=== PATIENT | male | born 1975 | race American Indian/Alaskan Native ===

== ENCOUNTER 2018-02-28 18:22 | Emergency (ER) | payer SELFPAY ==
[2018-02-28 18:31] VITALS: BP 151/93
--- NOTE | 2018-02-28 23:39 | Emergency Department Report ---
ED Lower Extremity HPI - General Chief Complaint: Extremity Injury, Lower Stated Complaint: RIGHT KNEE SWOLLEN Time Seen by Provider: 02/28/18 23:34 Source: patient Mode of arrival: Ambulatory Limitations: No Limitations - History of Present Illness Initial Comments: Patient is a 42-year-old -[place] male with a history of gout presents her right knee pain and swelling 2 days patient denies falling or trauma no fever chills. Pain exacerbated by weightbearing climbing up and down stairs patient has not attempted [id number] pain meds Complaint: other (right knee pain and swelling ) Onset/Timin -: days(s) Injury: Knee: Right Type of Injury: other (none) Place: home Severity: moderate Severity scale (0 -10): 4 Improves With: rest Worsens With: weight bearing, movement, palpation Context: fall Associated Symptoms: swelling, ambulatory - Related Data Previous Rx's Medication Instructions Recorded Last Taken Type Indomethacin 50 mg PO Q8H #30 capsule 02/28/18 Unknown Rx predniSONE [Deltasone] 40 mg PO QDAY 5 Days #10 tab 02/28/18 Unknown Rx Allergies Allergy/AdvReac Type Severity Reaction Status Date / Time Penicillins Allergy Unknown Verified 02/28/18 18:31 ED Review of Systems ROS: Stated complaint: RIGHT KNEE SWOLLEN Other details as noted in HPI Constitutional: denies: chills, fever Eyes: denies: eye pain, eye discharge, vision change ENT: ear pain. denies: dental pain, hearing loss, epistaxis, congestion Respiratory: denies: cough, shortness of breath, wheezing Cardiovascular: denies: chest pain, palpitations, edema, syncope, paroxysmal nocturnal dyspnea Endocrine: no symptoms reported Gastrointestinal: denies: abdominal pain, nausea, diarrhea Genitourinary: denies: urgency, dysuria Musculoskeletal: denies: back pain, joint swelling, arthralgia Skin: denies: rash, lesions Neurological: denies: headache, weakness, paresthesias Psychiatric: as per HPI Hematological/Lymphatic: denies: easy bleeding, easy bruising ED Past Medical Hx - Past Medical History Previous Medical History?: No - Surgical History Past Surgical History?: No - Social History Smoking Status: Former Smoker Substance Use Type: Alcohol - Medications Home Medications: Home Medications Medication Instructions Recorded Confirmed Last Taken Type Indomethacin 50 mg PO Q8H #30 capsule 07/31/18 Unknown Rx predniSONE [Deltasone] 40 mg PO QDAY 5 Days #10 tab 02/28/18 Unknown Rx ED Physical Exam - General Limitations: No Limitations General appearance: alert, in no apparent distress - Head Head exam: Present: atraumatic, normocephalic - Eye Eye exam: Present: normal appearance, PERRL, EOMI Pupils: Present: normal accommodation - ENT ENT exam: Present: normal exam, mucous membranes moist - Neck Neck exam: Present: normal inspection, full ROM. Absent: tenderness, meningismus, lymphadenopathy, thyromegaly - Respiratory Respiratory exam: Present: normal lung sounds bilaterally (5.). Absent: respiratory distress, wheezes, stridor, chest wall tenderness - Cardiovascular Cardiovascular Exam: Present: regular rate, normal rhythm, normal heart sounds. Absent: systolic murmur, diastolic murmur, rubs, gallop - GI/Abdominal GI/Abdominal exam: Present: soft, normal bowel sounds. Absent: distended, tenderness, guarding, rebound, rigid, organomegaly, mass, bruit, pulsatile mass , hernia - Rectal Rectal exam: Present: deferred - exam: Present: normal inspection - Extremities Exam Extremities exam: Present: normal inspection, full ROM, normal capillary refill. Absent: tenderness, pedal edema, joint swelling, calf tenderness - Back Exam Back exam: Present: full ROM. Absent: tenderness, CVA tenderness (R), CVA tenderness (L), muscle spasm, paraspinal tenderness, vertebral tenderness - Neurological Exam Neurological exam: Present: alert, oriented X3 - Psychiatric Psychiatric exam: Present: normal affect, normal mood - Skin Skin exam: Present: warm, dry, intact, normal color. Absent: rash ED Course Vital Signs 02/28/18 18:27 Temperature 97.8 F Pulse Rate 78 Respiratory 20 Rate Blood Pressure 151/93 O2 Sat by Pulse 95 Oximetry Critical care attestation.: If time is entered above; I have spent that time in minutes in the direct care of this critically ill patient, excluding procedure time. ED Disposition Clinical Impression: Gout of knee Qualifiers: Gout etiology: idiopathic Chronicity: unspecified Laterality: left Qualified Code(s): M10.062 - Idiopathic gout, left knee Disposition: TO HOME OR SELFCARE Is pt being admited?: No Does the pt Need Aspirin: No Condition: Good Instructions: Acute Gouty Arthritis (ED) Prescriptions: Indomethacin 50 mg PO Q8H #30 capsule predniSONE [Deltasone] 40 mg PO QDAY 5 Days #10 tab Referrals: PRIMARY CARE, [Primary Care Provider] - 3-5 Days Forms: Work/School Release Form(ED) Time of Disposition: 23:49
[2018-02-28] MEDS ORDERED: ULTRAM PO ONE (23:45)
[2018-02-28] MEDS ORDERED: DELTASONE PO ONE (23:45)
== END 2018-03-01 00:10 | disposition home or self-care (01) ==
LOC: ED 18:22
DX: M10.061 Idiopathic gout, right knee (principal); Z87.891 Personal history of nicotine dependence; Z88.0 Allergy status to penicillin
CPT/HCPCS: 99282; J7512

== ENCOUNTER 2019-04-15 15:57 | Emergency (ER) | payer SELFPAY ==
--- NOTE | 2019-04-15 16:49 | Event Note ---
ED Screening Note Date of service: 04/15/19 Time: 16:46 ED Screening Note: This is a 43 y.o. M. that presents to the ER with drainage and swelling around left great toe nail. Patient stumped toe on the side of bed frame 2 days ago. Reports worsening pain with weight bearing. This initial assessment/diagnostic orders/clinical plan/treatment(s) is/are subject to change based on patients health status, clinical progression and re- assessment by fellow clinical providers in the ED. Further treatment and workup at subsequent clinical providers discretion. Patient/guardian urged not to elope from the ED as their condition may be serious if not clinically assessed and managed. Initial orders include: XR left toes
--- NOTE | 2019-04-15 17:36 | XRay Report ---
Left little toe series-4 views INDICATION: 5st digit distal pain, injury. Significant stubbed the little toe today COMPARISON: None. IMPRESSION: Mild soft tissue swelling with no acute fracture. No significant DJD. Signer Name: Steffen Brower MD Signed: 04/15/2019 5:32 PM Workstation Name: [id number]
[2019-04-15] MEDS ORDERED: BOOSTRIX IM ONE (19:31)
[2019-04-15] MEDS ORDERED: TORADOL IM ONE (19:31)
--- NOTE | 2019-04-15 19:31 | Emergency Department Report ---
ED Laceration HPI - HPI Chief Complaint: Extremity Injury, Lower Stated Complaint: L TOE INJURY Time Seen by Provider: 04/15/19 16:45 Occurred When: Yesterday Location: Lower Extremity (left small toe) Severity: moderate (X/10) Tetanus Status: Not up to Date Laceration Symptoms: Yes Pain (X/10), No Foreign Body Sensation, No Numbness, No Weakness Other History: She presented to the emergency room reported that he bumped his left small toe yesterday accidentally on within object and he is having swelling and pain to left some Fabian. Reports he has a small cut to the area. And that this pain is throbbing. He said he saw some base liquid coming out of the area. Denies any fall. Denies any other pain. Tetanus vaccine is up-to-date. ED Review of Systems ROS: Stated complaint: L TOE INJURY Other details as noted in HPI Constitutional: denies: chills, fever Respiratory: denies: cough, shortness of breath Cardiovascular: denies: chest pain, dyspnea on exertion Gastrointestinal: denies: nausea Musculoskeletal: joint swelling, arthralgia. denies: back pain, myalgia Skin: other (cut to left small toe) Neurological: denies: headache, numbness, paresthesias, abnormal gait ED Past Medical Hx - Past Medical History Previous Medical History?: No - Surgical History Past Surgical History?: No - Family History Family history: no significant - Social History Smoking Status: Current Every Day Smoker Substance Use Type: Alcohol, Marijuana - Medications Home Medications: Home Medications Medication Instructions Recorded Confirmed Last Taken Type Indomethacin 50 mg PO Q8H #30 capsule 02/28/18 Unknown Rx predniSONE [Deltasone] 40 mg PO QDAY 5 Days #10 tab 02/28/18 Unknown Rx Ibuprofen [Motrin] 800 mg PO Q8HR PRN #12 tablet 04/15/19 Unknown Rx Sulfamethoxazole/Trimethoprim 1 each PO Q12HR 7 Days #14 tablet 04/15/19 Unknown Rx [Bactrim DS TAB] Laceration Physical Exam - Exam General: Vital signs noted. No distress. Alert and acting appropriately. This is a 43-year-old male well-nourished well-developed in no acute distress Wound Length (cm): 0 (facial abrasion) Laceration Location: Lower Extremity (left small toe) Full Body Front + Back: 1 - Superficial abrasion left small toe. No bleeding noted. No pus noted. Area tender to palpate distally with swelling and no bony abnormality. Laceration Exam: Yes Normal Distal CMS (extremities physical exam), No Foreign Body, No Exposed Tendon, Vessel, or Nerve, No Tendon Injury ED Course Vital Signs 04/15/19 16:31 Temperature 98.7 F Pulse Rate 98 H Respiratory 18 Rate Blood Pressure 120/85 O2 Sat by Pulse 96 Oximetry - Reevaluation(s) Reevaluation #1: 04/15/19 20:25 Left small toe abrasion cleansed with saline and Neosporin ointment placed the site. Area dressed with dry sterile dressing and postop shoe placed. Patient is stable in no acute distress and was given Bactrim DS for infection, booster 0.5 mL to update tetanus and Toradol 60 mg IM for pain. - Orthopedic Splinting/Casting Injury #1 Side: left Lower Extremity Injury Location: toe Lower Extremity Immobilizer: post-op shoe Additional Comments: Patient with good color, sensation and movement and temperature to both feet including toes ED Medical Decision Making - Radiology Data Radiology results: report reviewed Patient had x-ray of left fifth digits which shows soft tissue swelling without any fracture. This was dictated by radiologist and report reviewed by myself. Please see details below Findings [facility] [address] [place] [address] XRay Report Signed Patient: CONNIE VASQUEZ MR#: [id number] : 1975 Acct:[id number] Age/Sex: 43 / M ADM Date: 04/15/19 Loc: ED Attending Dr: Ordering Physician: BRISA INMAN Date of Service: 04/15/19 Procedure(s): XR toe(s) 2+V LT Accession Number(s): [id number] cc: BRISA INMAN Fluoro Time In Minutes: Left little toe series-4 views INDICATION: 5st digit distal pain, injury. Significant stubbed the little toe today COMPARISON: None. IMPRESSION: Mild soft tissue swelling with no acute fracture. No significant DJD. Signer Name: Steffen Brower MD Signed: 04/15/2019 5:32 PM Workstation Name: [id number] Transcribed By: LUIS Dictated By: Steffen Brower MD Electronically Authenticated By: Steffen Brower MD Signed Date/Time: 04/15/191731 DD/ 30 TD/TT: - Medical Decision Making This is a 43-year-old male here for left small toe injury and found to have contusion to left small toe. He has a small abrasion to the area and site was cleansed, Neosporin ointment placed followed by dry sterile dressing and postop shoe placed. Please refer to procedure note for details. Patient started on antibiotic and emergency room and also even Boostrix to update tetanus. Pain control with Toradol and he is stable in no acute distress in voice pain relief. X-ray showed no fracture or dislocation but mild soft tissue swelling. I discussed the patient x-ray results, diagnosis and treatment plan and he voiced understanding and told him to follow up with his primary care in 2-3 days and if area becomes worse to return to the emergency room and he agrees. Discharge home with prescription for Bactrim and Motrin. - Differential Diagnosis fracture, dislocation, and 2 vision, MSK pain Critical care attestation.: If time is entered above; I have spent that time in minutes in the direct care of this critically ill patient, excluding procedure time. ED Disposition Clinical Impression: Abrasion, toe without infection Contusion of small toe Qualifiers: Encounter type: initial encounter Laterality: left Qualified Code(s): S90.122A - Contusion of left lesser toe(s) without damage to nail, initial encounter Disposition: DC-01 TO HOME OR SELFCARE Is pt being admited?: No Does the pt Need Aspirin: No Condition: Stable Instructions: Foot Contusion (ED), RICE Therapy (ED), Abrasion (ED) Additional Instructions: Follow-up with primary care physician in 2-3 days or if your condition worsens return to the emergency room Please see discharge instruction on Rice therapy Take all medication as prescribed and take medication with food as it can cause irritation to stomach lining Prescriptions: Sulfamethoxazole/Trimethoprim [Bactrim DS TAB] 1 each PO Q12HR 7 Days #14 tablet Ibuprofen [Motrin] 800 mg PO Q8HR PRN #12 tablet PRN Reason: moderate pain Referrals: [facility] [Outside] - 2-3 Days Forms: Accompanied Note, Work/School Release Form(ED)
[2019-04-15] MEDS ORDERED: TRIPLE ANTIBIOTIC TP ONE (19:32)
[2019-04-15] MEDS ORDERED: NACL 0.9% IR ONE (19:32)
[2019-04-15] MEDS ORDERED: BACTRIM DS PO SCH (20:00)
[2019-04-15 20:50] VITALS: BP 148/92
== END 2019-04-15 20:50 | disposition home or self-care (01) ==
LOC: ED 15:57
DX: S90.122A Contusion of left lesser toe(s) without damage to nail, initial encounter (principal); F17.200 Nicotine dependence, unspecified, uncomplicated; F12.90 Cannabis use, unspecified, uncomplicated; Z88.0 Allergy status to penicillin; W22.8XXA Striking against or struck by other objects, initial encounter; Y93.89 Activity, other specified; Y92.89 Other specified places as the place of occurrence of the external cause; Y99.8 Other external cause status
CPT/HCPCS: 73660; 90471; 90715; 96372; 99283; J1885; A6250

== ENCOUNTER 2019-06-02 10:42 | Emergency (ER) | payer SELFPAY ==
[2019-06-02 11:12] VITALS: BP 129/87
--- NOTE | 2019-06-02 12:42 | Emergency Department Report ---
ED Lower Extremity HPI - General Chief Complaint: Extremity Problem,Nontraumatic Stated Complaint: SWOLLEN KNEE Time Seen by Provider: 06/02/19 12:00 Source: patient Mode of arrival: Ambulatory Limitations: No Limitations - History of Present Illness Initial Comments: Initial complaint of R knee pain which he thinks may be a gout flare up, however also having pain and tenderness popliteal area. No hx DVT Also states a partner notified him that she has trich and he wants STI screening. No symptoms MD Complaint: knee injury -: Gradual, days(s) (1) Injury: Knee: Right Type of Injury: unknown Place: home Severity: moderate Severity scale (0 -10): 7 Improves With: immobilization Worsens With: weight bearing, movement Associated Symptoms: swelling, ambulatory - Related Data Previous Rx's Medication Instructions Recorded Last Taken Type predniSONE [Deltasone] 40 mg PO QDAY 5 Days #10 tab 02/28/18 Unknown Rx Ibuprofen [Motrin] 800 mg PO Q8HR PRN #12 tablet 04/15/19 Unknown Rx Sulfamethoxazole/Trimethoprim 1 each PO Q12HR 7 Days #14 tablet 04/15/19 Unknown Rx [Bactrim DS TAB] Indomethacin 50 mg PO Q8H #21 capsule 06/02/19 Unknown Rx dexAMETHasone [Dexamethasone] 4 mg PO BID #10 tablet 06/02/19 Unknown Rx metroNIDAZOLE [Flagyl TAB] 2,000 mg PO ONCE #4 tab 06/02/19 Unknown Rx Allergies Allergy/AdvReac Type Severity Reaction Status Date / Time Penicillins Allergy Unknown Verified 02/28/18 18:31 ED Review of Systems ROS: Stated complaint: SWOLLEN KNEE Other details as noted in HPI Comment: All other systems reviewed and negative Musculoskeletal: as per HPI ED Past Medical Hx - Past Medical History Previous Medical History?: No - Surgical History Past Surgical History?: No - Social History Smoking Status: Never Smoker Substance Use Type: None - Medications Home Medications: Home Medications Medication Instructions Recorded Confirmed Last Taken Type predniSONE [Deltasone] 40 mg PO QDAY 5 Days #10 tab 02/28/18 Unknown Rx Ibuprofen [Motrin] 800 mg PO Q8HR PRN #12 tablet 04/15/19 Unknown Rx Sulfamethoxazole/Trimethoprim 1 each PO Q12HR 7 Days #14 tablet 04/15/19 U nknown Rx [Bactrim DS TAB] Indomethacin 50 mg PO Q8H #21 capsule 06/02/19 Unknown Rx dexAMETHasone [Dexamethasone] 4 mg PO BID #10 tablet 06/02/19 Unknown Rx metroNIDAZOLE [Flagyl TAB] 2,000 mg PO ONCE #4 tab 06/02/19 Unknown Rx ED Physical Exam - General Limitations: No Limitations General appearance: alert, in no apparent distress - Head Head exam: Present: atraumatic, normocephalic - Eye Eye exam: Present: normal appearance - ENT ENT exam: Present: mucous membranes moist - Neck Neck exam: Present: normal inspection - Respiratory Respiratory exam: Present: normal lung sounds bilaterally. Absent: respiratory distress - Cardiovascular Cardiovascular Exam: Present: regular rate, normal rhythm. Absent: systolic murmur, diastolic murmur, rubs, gallop - GI/Abdominal GI/Abdominal exam: Present: soft, normal bowel sounds - Rectal Rectal exam: Present: deferred - Extremities Exam Extremities exam: Present: other (mild swelling to R knee as well as the upper part of the calf w/ popliteal tenderness, normal distal pulses, normal sensation) - Back Exam Back exam: Present: normal inspection, full ROM - Neurological Exam Neurological exam: Present: alert, oriented X3 - Psychiatric Psychiatric exam: Present: normal affect, normal mood - Skin Skin exam: Present: warm, dry, intact, normal color. Absent: rash ED Course Vital Signs 06/02/19 11:10 Temperature 98.4 F Pulse Rate 97 H Respiratory 16 Rate Blood Pressure 129/87 [Left] O2 Sat by Pulse 95 Oximetry ED Lower Extremity MDM - Radiology Data Radiology results: report reviewed, image reviewed no dvt - Medical Decision Making knee/LE pain, ? gout, hx of but never with leg swelling DVT study negative no sign of septic joint also wants trich treatment advised pcp fu - Differential Diagnosis gout, pseudogout, r/o DVT, STI exposure Critical care attestation.: If time is entered above; I have spent that time in minutes in the direct care of this critically ill patient, excluding procedure time. ED Disposition Clinical Impression: Exposure to trichomonas Gout of right knee Qualifiers: Gout etiology: unspecified cause Chronicity: acute Qualified Code(s): M10.9 - Gout, unspecified Disposition: DC- TO HOME OR SELFCARE Is pt being admited?: No Condition: Good Instructions: Acute Gouty Arthritis (ED), Trichomoniasis (ED) Prescriptions: dexAMETHasone [Dexamethasone] 4 mg PO BID #10 tablet metroNIDAZOLE [Flagyl TAB] 2,000 mg PO ONCE #4 tab Indomethacin 50 mg PO Q8H #21 capsule Referrals: PRIMARY CARE, [Primary Care Provider] - 3-5 Days Time of Disposition: 13:51
--- NOTE | 2019-06-02 13:36 | Vascular Lab Report ---
DUPLEX DOPPLER LOWER EXTREMITY VEINS, RIGHT INDICATION: pain, edema. TECHNIQUE: Duplex doppler imaging was performed through the veins of the right lower extremity using venous comp ression and other maneuvers. COMPARISON: No relevant prior imaging study available. FINDINGS: Right Common femoral vein: Negative. Right Superficial femoral vein: Negative. Right Popliteal vein: Negative. Right Calf veins: Negative. Additional findings: None.. IMPRESSION: 1. No sonographic evidence for DVT in the right lower extremity. Signer Name: Steffen Brower MD Signed: 06/02/2019 1:31 PM Workstation Name: [id number]
== END 2019-06-02 13:58 | disposition home or self-care (01) ==
LOC: ED 10:42
DX: M10.9 Gout, unspecified (principal); Z20.2 Contact with and (suspected) exposure to infections with a predominantly sexual mode of transmission; Z88.0 Allergy status to penicillin
CPT/HCPCS: 87591

== ENCOUNTER 2019-08-07 11:38 | Emergency (ER) | payer SELFPAY ==
--- NOTE | 2019-08-07 12:07 | Emergency Department Report ---
Blank Doc - Documentation Documentation: 43 Y/O S/P BINGE DRINKING AN UNKNOWN INTOXICATING SUBSTANCE A FEW DAYS AGO AND NOW HAS A HEADACHE AND HAD ONE URINATION IN THE LAST 3 DAYS 3WHICH WAS DARK RED. PAIN RADIATES TO FLANK TOO The patient was seen in triage for ABDOMINAL AND FLANK PAIN. Labs/imaging ordered to evaluate for a cause of this complaint. Vital signs reviewed, patient awake and alert in NAD.
[2019-08-07 13:14] LABS: Bacteria,Urine 1+ /HPF (Negative); Bilirubin,Urine NEG (Negative); Blood,Urine SM (Negative); Color,Urine Amber (Yellow); Granular Casts,Urine 3 /LPF; Hyaline Casts,Urine 3 /LPF; Mucus,Urine 3+ /HPF
[2019-08-07 13:19] LABS: Eosinophils % (Auto) 0.9 % (0.0-4.3); Hematocrit 41.6 % (35.5-45.6); Hemoglobin 14.5 gm/dl (11.8-15.2); Lymphocytes # (Auto) 0.8 K/mm3 (1.2-5.4); Lymphocytes % (Auto) 23.5 % (13.4-35.0); Mean Corpuscular HGB Conc 35 % (32-34); Mean Corpuscular Volume 94 fl (84-94); Monocytes # (Auto) 0.2 K/mm3 (0.0-0.8); Monocytes % (Auto) 7.4 % (0.0-7.3); Platelet Count 203 K/mm3 (140-440); Red Blood Count 4.43 M/mm3 (3.65-5.03); Red Cell Distribution Width 13.1 % (13.2-15.2)
[2019-08-07 13:52] LABS: Alanine Aminotransferase 157 units/L (7-56); Albumin 4.4 g/dL (3.9-5); BUN/Creatinine Ratio 10; Bilirubin,Direct 0.4 mg/dL (0-0.2); Blood Urea Nitrogen 11 mg/dL (9-20); Hemolysis Index 7
[2019-08-07] MEDS ORDERED: MORPHINE 2 MG/1 ML INJ IV ONE (17:38)
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
--- NOTE | 2019-08-07 18:47 | Cat Scan Report ---
CT ABDOMEN AND PELVIS WITH IV CONTRAST INDICATION: abdominal pain. COMPARISON: None available. TECHNIQUE: All CT scans at this facility use dose modulation, automated exposure control, iterative reconstructi on or weight based dosing, when appropriate, to reduce radiation dose to as low as reasonably achieva ble. FINDINGS: Lung Bases: No significant abnormality. Skeletal System: No acute abnormality. ABDOMEN: Liver: No significant abnormality. Gallbladder: No significant abnormality. Bile Ducts: No significant abnormality. Pancreas: No significant abnormality. Spleen: No significant abnormality. Adrenals: No significant abnormality. Right Kidney: No significant abnormality. Left Kidney: No significant abnormality. Upper GI tract: No significant abnormality. Lymph Nodes: No significant adenopathy. Aorta: No significant abnormality. Additional Findings: No significant abnormality. PELVIS: Colon: No acute abnormality. Diverticulosis is noted. Urinary Bladder and Distal Ureters: No significant abnormality. Appendix: No significant abnormality. Lymph Nodes: No significant adenopathy. Additional Findings: None. IMPRESSION: 1. No acute process in the abdomen or pelvis. Signer Name: Livan Mckeon MD Signed: 08/07/2019 6:42 PM Workstation Name: [id number]
[2019-08-07] MEDS ORDERED: POTASSIUM CHLORIDE ER 20 MEQ TAB PO ONE (19:03)
[2019-08-07] MEDS ORDERED: SODIUM CHLORIDE 0.9% 1000 ML 1,000 ML IV ONE (19:15)
[2019-08-07 19:27] VITALS: BP 124/90
== END 2019-08-07 19:39 | disposition home or self-care (01) ==
LOC: ED 11:38
DX: M54.5 Low back pain (principal); R10.9 Unspecified abdominal pain; R94.5 Abnormal results of liver function studies; Z79.899 Other long term (current) drug therapy; Z88.0 Allergy status to penicillin
CPT/HCPCS: 36415; 74177; 80048; 80076; 81001; 83690; 85025; 96374; 99284; J2270; Q9967

== ENCOUNTER 2019-09-24 18:53 | Emergency (ER) | payer SELFPAY ==
[2019-09-24 20:09] VITALS: BP 126/87
--- NOTE | 2019-09-24 20:13 | Emergency Department Report ---
ED Extremity Problem HPI - General Chief complaint: Extremity Problem,Nontraumatic Stated complaint: GOUT, SWOLLEN KNEE Time Seen by Provider: 09/24/19 20:09 Source: patient Mode of arrival: Ambulatory Limitations: No Limitations - History of Present Illness Initial comments: pt is a 44 yo male who presents to the ED with c/o a gout flare to the right k nee that began yesterday. he states he typically gets his flares in this knee. he states his last flare was 3 months ago. he states he tries to follow the diet. no numbness, no weakness. PMHx none. allergy: pencillin. - Related Data Previous Rx's Medication Instructions Recorded Last Taken Type Ibuprofen [Motrin] 800 mg PO Q8HR PRN #12 tablet 04/15/19 Unknown Rx Sulfamethoxazole/Trimethoprim 1 each PO Q12HR 7 Days #14 tablet 04/15/19 Unknown Rx [Bactrim DS TAB] dexAMETHasone [Dexamethasone] 4 mg PO BID #10 tablet 06/02/19 Unknown Rx metroNIDAZOLE [Flagyl TAB] 2,000 mg PO ONCE #4 tab 06/02/19 Unknown Rx Colchicine 0.6 mg PO ONCE 1 Days #3 capsule 09/24/19 Unknown Rx Indomethacin 50 mg PO Q8H #14 capsule 09/24/19 Unknown Rx predniSONE [Deltasone] 40 mg PO QDAY 5 Days #10 tab 09/24/19 Unknown Rx traMADoL [Ultram 50 MG tab] 50 mg PO Q6HR PRN #7 tablet 09/24/19 Unknown Rx Allergies Allergy/AdvReac Type Severity Reaction Status Date / Time Penicillins Allergy Unknown Verified 02/28/18 18:31 ED Review of Systems ROS: Stated complaint: GOUT, SWOLLEN KNEE Other details as noted in HPI Comment: All other systems reviewed and negative ED Past Medical Hx - Past Medical History Previous Medical History?: Yes Additional medical history: Gout - Surgical History Past Surgical History?: No - Social History Smoking Status: Never Smoker Substance Use Type: None - Medications Home Medications: Home Medications Medication Instructions Recorded Confirmed Last Taken Type Ibuprofen [Motrin] 800 mg PO Q8HR PRN #12 tablet 04/15/19 Unknown Rx Sulfamethoxazole/Trimethoprim 1 each PO Q12HR 7 Days #14 tablet 04/15/19 Unknown Rx [Bactrim DS TAB] dexAMETHasone [Dexamethasone] 4 mg PO BID #10 tablet 06/02/19 Unknown Rx metroNIDAZOLE [Flagyl TAB] 2,000 mg PO ONCE #4 tab 06/02/19 Unknown Rx Colchicine 0.6 mg PO ONCE 1 Days #3 capsule 09/24/19 Unknown Rx Indomethacin 50 mg PO Q8H #14 capsule 09/24/19 Unknown Rx predniSONE [Deltasone] 40 mg PO QDAY 5 Days #10 tab 09/24/19 Unknown Rx traMADoL [Ultram 50 MG tab] 50 mg PO Q6HR PRN #7 tablet 09/24/19 Unknown Rx ED Physical Exam - General Limitations: No Limitations General appearance: alert, in no apparent distress - Head Head exam: Present: atraumatic, normocephalic - Eye Eye exam: Present: normal appearance - ENT ENT exam: Present: mucous membranes moist - Extremities Exam Extremities exam: Present: other (edema to the right knee, mild increased warmth, no obvious erythema, generalized discomfort to palpation, no bony TTP, FROM of the right knee, neurovascularly intact) - Neurological Exam Neurological exam: Present: alert, oriented X3 - Psychiatric Psychiatric exam: Present: normal affect, normal mood - Skin Skin exam: Present: warm, dry, intact ED Course Vital Signs 09/24/19 20:08 Temperature 98.6 F Pulse Rate 89 Respiratory 18 Rate Blood Pressure 126/87 O2 Sat by Pulse 95 Oximetry ED Medical Decision Making - Medical Decision Making pt is a 44 yo male who presents to the ED with c/o a gout flare to the right knee that began yesterday. he states he typically gets his flares in this knee. he states his last flare was 3 months ago. he states he tries to follow the diet. no numbness, no weakness. PMHx none. allergy: pencillin. vital are normal. on exam: edema to the right knee, mild increased warmth, no obvious erythema, generalized discomfort to palpation, no bony TTP, FROM of the right knee, neurovascularly intact. Examination consistent with acute gout flare. No signs of septic joint. Given prescription for prednisone, colchicine, tramadol, indomethacin. advised pt to please take medication as prescribed. do not drive or operate heavy machinery while taking pain medication. medication may cause GI upset/diarrhea. follow up with a primary care doctor for reexamination. return to the emergency room for any new or worsening symptoms. Critical care attestation.: If time is entered above; I have spent that time in minutes in the direct care of this critically ill patient, excluding procedure time. ED Disposition Clinical Impression: Gout Qualifiers: Gout site: knee Gout etiology: unspecified cause Chronicity: acute Laterality: right Qualified Code(s): M10.9 - Gout, unspecified Disposition: TO HOME OR SELFCARE Is pt being admited?: No Does the pt Need Aspirin: No Condition: Stable Instructions: Acute Gouty Arthritis (ED) Additional Instructions: please take medication as prescribed. do not drive or operate heavy machinery while taking pain medication. medication may cause GI upset/diarrhea. follow up with a primary care doctor for reexamination. return to the emergency room for any new or worsening symptoms. Prescriptions: Colchicine 0.6 mg PO ONCE 1 Days #3 capsule predniSONE [Deltasone] 40 mg PO QDAY 5 Days #10 tab Indomethacin 50 mg PO Q8H #14 capsule traMADoL [Ultram 50 MG tab] 50 mg PO Q6HR PRN #7 tablet PRN Reason: Pain , Severe (7-10) Referrals: JOHNNY SANCHES MD [Staff Physician] - 2-3 Days [facility] [Outside] - 2-3 Days [facility] [Outside] - 2-3 Days Time of Disposition: 20:14 Print Language: [place] ISLANDER
== END 2019-09-24 21:48 | disposition home or self-care (01) ==
LOC: ED 18:53
DX: M10.9 Gout, unspecified (principal); M25.461 Effusion, right knee; Z88.0 Allergy status to penicillin; Z79.899 Other long term (current) drug therapy
CPT/HCPCS: 99281

== ENCOUNTER 2021-08-21 23:42 | Emergency (ER) | payer SELFPAY | END 2021-08-22 04:20 | disposition left against medical advice (07) | LOC: ED 23:42 | DX: R00.2 Palpitations (principal); Z53.21 Procedure and treatment not carried out due to patient leaving prior to being seen by health care provider ==

== ENCOUNTER 2021-08-22 05:00 | Emergency (ER) | payer SELFPAY ==
[2021-08-22] MEDS ORDERED: ASPIRIN 81 MG TAB CHEW PO ONE (06:36)
--- NOTE | 2021-08-22 06:44 | Emergency Department Report ---
ED Chest Pain HPI - General Chief Complaint: Chest Pain Stated Complaint: CHEST PAIN PUI?: No Time Seen by Provider: 08/22/21 06:33 Source: patient Mode of arrival: Ambulatory Limitations: No Limitations - History of Present Illness Initial Comments: Chief complaint: "I feel like an elephant is sitting on my chest." HPI: This is a 46-year-old male with history of tobacco dependence who presents with sudden onset of chest pain which began at 10 PM this evening. Occurred while watching TV. He has had cough. He has had shortness of breath. He denies fever, headache, abdominal pain, vomiting. No previous history of heart disease. Grandmother has history of heart disease. He stopped using cocaine 10 years ago. No known sick contacts. MD Complaint: chest pain -: Sudden, During the night Onset: during rest Pain Location: substernal Severity: severe Severity scale (0 -10): 10 Quality: heaviness Consistency: constant Improves With: nothing Worsens With: nothing re: dyspnea Other Symptoms: cough Treatments Prior to Arrival: none - Related Data Previous Rx's Medication Instructions Recorded Last Taken Type Ibuprofen [Motrin] 800 mg PO Q8HR PRN #12 tablet 04/15/19 Unknown Rx Sulfamethoxazole/Trimethoprim 1 each PO Q12HR 7 Days #14 tablet 04/15/19 Unknown Rx [Bactrim DS TAB] dexAMETHasone [Dexamethasone] 4 mg PO BID #10 tablet 06/02/19 Unknown Rx metroNIDAZOLE [Flagyl TAB] 2,000 mg PO ONCE #4 tab 06/02/19 Unknown Rx Colchicine 0.6 mg PO ONCE 1 Days #3 capsule 09/24/19 Unknown Rx Indomethacin 50 mg PO Q8H #14 capsule 09/24/19 Unknown Rx predniSONE [Deltasone] 40 mg PO QDAY 5 Days #10 tab 09/24/19 Unknown Rx traMADoL [Ultram 50 MG tab] 50 mg PO Q6HR PRN #7 tablet 09/24/19 Unknown Rx Allergies Allergy/AdvReac Type Severity Reaction Status Date / Time Penicillins Allergy Unknown Verified 02/28/18 18:31 Heart Score - HEART Score History: Moderately suspicious EKG: Normal Age: 45-65 Risk factors: 1-2 risk factors Troponin: < normal limit HEART Score: 3 - EKG Read Time Time EKG Completed: 06:15 EKG Read Time: 06:15 - Critical Actions Critical Actions: 0-3 pts:0.9-1.7%risk of adverse cardiac event.Candidate for discharge ED Review of Systems ROS: Stated complaint: CHEST PAIN Other details as noted in HPI Comment: All other systems reviewed and negative Constitutional: denies: chills, fever, malaise Respiratory: cough, shortness of breath Cardiovascular: chest pain Gastrointestinal: denies: abdominal pain, nausea, vomiting ED Past Medical Hx - Past Medical History Previous Medical History?: No Additional medical history: Gout - Surgical History Past Surgical History?: No - Social History Smoking Status: Current Every Day Smoker Substance Use Type: Alcohol, Marijuana - Medications Home Medications: Home Medications Medication Instructions Recorded Confirmed Last Taken Type Ibuprofen [Motrin] 800 mg PO Q8HR PRN #12 tablet 04/15/19 Unknown Rx Sulfamethoxazole/Trimethoprim 1 each PO Q12HR 7 Days #14 tablet 04/15/19 Unknown Rx [Bactrim DS TAB] dexAMETHasone [Dexamethasone] 4 mg PO BID #10 tablet 06/02/19 Unknown Rx metroNIDAZOLE [Flagyl TAB] 2,000 mg PO ONCE #4 tab 06/02/19 Unknown Rx Colchicine 0.6 mg PO ONCE 1 Days #3 capsule 09/24/19 Unknown Rx Indomethacin 50 mg PO Q8H #14 capsule 09/24/19 Unknown Rx predniSONE [Deltasone] 40 mg PO QDAY 5 Days #10 tab 09/24/19 Unknown Rx traMADoL [Ultram 50 MG tab] 50 mg PO Q6HR PRN #7 tablet 09/24/19 Unknown Rx ED Physical Exam - General Limitations: No Limitations General appearance: alert, in no apparent distress - Head Head exam: Present: atraumatic, normocephalic - Eye Eye exam: Present: normal appearance - ENT ENT exam: Present: mucous membranes moist - Neck Neck exam: Present: normal inspection, full ROM - Respiratory Respiratory exam: Present: normal lung sounds bilaterally. Absent: respiratory distress, wheezes, rales, rhonchi - Cardiovascular Cardiovascular Exam: Present: regular rate, normal rhythm, normal heart sounds. Absent: systolic murmur, diastolic murmur, rubs, gallop - GI/Abdominal GI/Abdominal exam: Present: soft, normal bowel sounds. Absent: distended, tenderness, guarding, rebound - Rectal Rectal exam: Present: deferred - Extremities Exam Extremities exam: Present: normal inspection - Back Exam Back exam: Present: normal inspection - Neurological Exam Neurological exam: Present: alert, oriented X3 - Psychiatric Psychiatric exam: Present: normal affect, normal mood - Skin Skin exam: Present: warm, dry, intact, normal color. Absent: rash ED Course Vital Signs 08/22/21 06:02 Temperature 97.9 F Pulse Rate 75 Respiratory 18 Rate Blood Pressure 120/83 [Right] O2 Sat by Pulse 97 Oximetry ED Medical Decision Making - Lab Data Result diagrams: 08/22/21 07:04 08/22/21 07:04 - EKG Data -: EKG Interpreted by Me EKG shows normal: sinus rhythm, axis, intervals, QRS complexes, ST-T waves Rate: normal - EKG Data 08/22/21 06:44 EKG obtained 0 615 EKG interpreted by me Rate 70 bpm normal sinus rhythm normal axis normal intervals no ST-T signs of ischemia no ST elevation 08/22/21 09:02 Second EKG obtained 0858 EKG interpreted by me Rate 80 beats minute normal EKG no changes from the first normal sinus rhythm normal rate normal axis normal intervals no ST elevation no ST-T signs of isch emia normal EKG - Radiology Data Radiology results: report reviewed [facility] [address] [place] [address] XRay Report Signed Patient: CONNIE VASQUEZ MR#: [id number] : 1975 Acct:[id number] Age/Sex: 46 / M ADM Date: 08/22/21 Loc: ED Attending Dr: Ordering Physician: Mindy Crabtree MD Date of Service: 08/22/21 Procedure(s): XR chest routine 2V Accession Number(s): [id number] cc: Mindy Crabtree MD Fluoro Time In Minutes: CHEST 2 VIEWS INDICATION / CLINICAL INFORMATION: chest pain. COMPARISON: None available. FINDINGS: SUPPORT DEVICES: None. HEART / MEDIASTINUM: No significant abnormality. LUNGS / PLEURA: No significant pulmonary or pleural abnormality. No pneumothorax. ADDITIONAL FINDINGS: No significant additional findings. IMPRESSION: 1. No acute findings. Signer Name: Abhilash Delgadillo MD Signed: 08/22/2021 6:59 AM Workstation Name: [id number] Transcribed By: CW Dictated By: RUBEN DELGADILLO MD Electronically Authenticated By: RUBEN DELGADILLO MD Signed Date/Time: 08/22/21658 DD/ 8 TD/TT: - Medical Decision Making Chest pain heart score 3, ACS is a consideration. PERC negative for PE. Differential diagnosis includes GERD anxiety. Troponin x2 both negative. EKG x2 both negative. Patient is low risk of major adverse cardiac event. I have referred him to assistant corporation counsel for outpatient evaluation. I have faxed referral r equest form to [facility]. Critical care attestation.: If time is entered above; I have spent that time in minutes in the direct care of this critically ill patient, excluding procedure time. ED Disposition Clinical Impression: GERD (gastroesophageal reflux disease), Chest wall pain Disposition: HOME / SELF CARE / HOMELESS Is pt being admited?: No Does the pt Need Aspirin: No Condition: Stable Instructions: Nonspecific Chest Pain, Adult Referrals: GURINDER DUNLAP MD [Staff Physician] - 2-3 Days
--- NOTE | 2021-08-22 07:03 | XRay Report ---
CHEST 2 VIEWS INDICATION / CLINICAL INFORMATION: chest pain. COMPARISON: None available. FINDINGS: SUPPORT DEVICES: None. HEART / MEDIASTINUM: No significant abnormality. LUNGS / PLEURA: No significant pulmonary or pleural abnormality. No pneumothorax. ADDITIONAL FINDINGS: No significant additional findings. IMPRESSION: 1. No acute findings. Signer Name: Abhilash Delgadillo MD Signed: 08/22/2021 6:59 AM Workstation Name: [id number]
[2021-08-22 07:44] LABS: Basophils % (Auto) 0.7 % (0.0-1.8); Eosinophils # (Auto) 0.2 K/mm3 (0.0-0.4); Eosinophils % (Auto) 3.9 % (0.0-4.3); Hematocrit 44.9 % (35.5-45.6); Hemoglobin 14.6 gm/dl (11.8-15.2); Lymphocytes % (Auto) 48.3 % (13.4-35.0); Mean Corpuscular HGB Conc 33 % (32-34); Mean Corpuscular Volume 98 fl (84-94); Monocytes # (Auto) 0.5 K/mm3 (0.0-0.8); Monocytes % (Auto) 10.8 % (0.0-7.3); Platelet Count 281 K/mm3 (140-440); Red Blood Count 4.59 M/mm3 (3.65-5.03); Red Cell Distribution Width 13.3 % (13.2-15.2)
[2021-08-22] MEDS ORDERED: ASPIRIN 325 MG TAB ONE (07:48)
[2021-08-22 08:10] LABS: Alanine Aminotransferase 26 units/L (7-56); Albumin 4.9 g/dL (3.9-5); BUN/Creatinine Ratio 23; Blood Urea Nitrogen 18 mg/dL (9-20); Calcium 9.9 mg/dL (8.4-10.2); Hemolysis Index 17
[2021-08-22] MEDS ORDERED: ASPIRIN 81 MG TAB CHEW ONE (08:39)
[2021-08-22 10:17] VITALS: BP 138/89
--- NOTE | 2021-08-27 13:18 | Electrocardiograph Report ---
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
--- NOTE | 2021-08-27 13:19 | Electrocardiograph Report ---
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
== END 2021-08-22 10:18 | disposition home or self-care (01) ==
LOC: ED 05:00
DX: K21.9 Gastro-esophageal reflux disease without esophagitis (principal); R07.9 Chest pain, unspecified; F17.200 Nicotine dependence, unspecified, uncomplicated; F10.20 Alcohol dependence, uncomplicated; F12.90 Cannabis use, unspecified, uncomplicated
CPT/HCPCS: 36415; 71046; 80053; 84484; 85025; 93005; 93010; 99283; 99284

== ENCOUNTER 2022-02-03 20:16 | Emergency (ER) | payer SELFPAY ==
--- NOTE | 2022-02-04 00:19 | XRay Report ---
Bilateral feet radiographs, 3 views of each foot provided. HISTORY: Trauma COMPARISON: None FINDINGS: Right foot: No acute fracture or malalignment. There is mild hallux valgus. No significant arthritis. Lisfranc interval is preserved. There is evidence of soft tissue injury of the medial great toe. No radiopaque foreign body. Left foot: No acute fracture or malalignment. No significant arthritis. Lisfranc interval is preserve d. No focal soft tissue normality. Signer Name: Rene Mcintyre MD Signed: 02/04/2022 12:14 AM Workstation Name: [id number]
--- NOTE | 2022-02-04 05:25 | Emergency Department Report ---
ED Lower Extremity HPI - General Chief Complaint: Extremity Injury, Lower Stated Complaint: FOOT INJURY Time Seen by Provider: 02/04/22 05:13 Source: patient Mode of arrival: Ambulatory Limitations: No Limitations - History of Present Illness Initial Comments: Patient 46-year-old male who presents for bilateral great toe pain swelling states he dropped a dresser on his toes 1 week ago. Concern for nail pain. There is been no fever no chills patient does not have diabetes paced and denies draining or bleeding. Patient is amatory with steady gait is wearing shoes and socks at this time. Patient denies numbness or tingling or inability to bear weight. Pain rated at 5/10 exacerbated by palpation. MD Complaint: foot injury - Related Data Previous Rx's Medication Instructions Recorded Last Taken Type Ibuprofen [Motrin] 800 mg PO Q8HR PRN #12 tablet 04/15/19 Unknown Rx Sulfamethoxazole/Trimethoprim 1 each PO Q12HR 7 Days #14 tablet 04/15/19 Unknown Rx [Bactrim DS TAB] dexAMETHasone [Dexamethasone] 4 mg PO BID #10 tablet 06/02/19 Unknown Rx metroNIDAZOLE [Flagyl TAB] 2,000 mg PO ONCE #4 tab 06/02/19 Unknown Rx Colchicine 0.6 mg PO ONCE 1 Days #3 capsule 09/24/19 Unknown Rx Indomethacin 50 mg PO Q8H #14 capsule 09/24/19 Unknown Rx predniSONE [Deltasone] 40 mg PO QDAY 5 Days #10 tab 09/24/19 Unknown Rx traMADoL [Ultram 50 MG tab] 50 mg PO Q6HR PRN #7 tablet 09/24/19 Unknown Rx Terbinafine HCl [Lamisil At 1% 1 applicatio TP BID 14 Days #1 tube 02/04/22 Unknown Rx CREAM] cephALEXin [Keflex] 500 mg PO Q8HR 7 Days #21 cap 02/04/22 Unknown Rx traMADoL [Ultram] 50 mg PO Q6HR PRN #12 tablet 02/04/22 Unknown Rx Allergies Allergy/AdvReac Type Severity Reaction Status Date / Time Penicillins Allergy Unknown Verified 02/28/18 18:31 ED Review of Systems ROS: Stated complaint: FOOT INJURY Other details as noted in HPI Constitutional: denies: chills, fever Eyes: denies: eye pain, eye discharge, vision change ENT: denies: ear pain, throat pain Respiratory: denies: cough, shortness of breath, wheezing Cardiovascular: denies: chest pain, palpitations Endocrine: no symptoms reported Gastrointestinal: denies: abdominal pain, nausea, diarrhea Genitourinary: denies: urgency, dysuria Musculoskeletal: other Skin: denies: rash, lesions Neurological: denies: headache, weakness, paresthesias Psychiatric: denies: anxiety, depression Hematological/Lymphatic: denies: easy bleeding, easy bruising ED Past Medical Hx - Past Medical History Additional medical history: Gout - Social History Smoking Status: Current Every Day Smoker Substance Use Type: Alcohol, Marijuana - Medications Home Medications: Home Medications Medication Instructions Recorded Confirmed Last Taken Type Ibuprofen [Motrin] 800 mg PO Q8HR PRN #12 tablet 04/15/19 Unknown Rx Sulfamethoxazole/Trimethoprim 1 each PO Q12HR 7 Days #14 tablet 04/15/19 Unknown Rx [Bactrim DS TAB] dexAMETHasone [Dexamethasone] 4 mg PO BID #10 tablet 06/02/19 Unknown Rx metroNIDAZOLE [Flagyl TAB] 2,000 mg PO ONCE #4 tab 06/02/19 Unknown Rx Colchicine 0.6 mg PO ONCE 1 Days #3 capsule 09/24/19 Unknown Rx Indomethacin 50 mg PO Q8H #14 capsule 09/24/19 Unknown Rx predniSONE [Deltasone] 40 mg PO QDAY 5 Days #10 tab 09/24/19 Unknown Rx traMADoL [Ultram 50 MG tab] 50 mg PO Q6HR PRN #7 tablet 09/24/19 Unknown Rx Terbinafine HCl [Lamisil At 1% 1 applicatio TP BID 14 Days #1 tube 02/04/22 Unknown Rx CREAM] cephALEXin [Keflex] 500 mg PO Q8HR 7 Days #21 cap 02/04/22 Unknown Rx traMADoL [Ultram] 50 mg PO Q6HR PRN #12 tablet 02/04/22 Unknown Rx ED Physical Exam - General Limitations: No Limitations General appearance: alert, in no apparent distress - Head Head exam: Present: normocephalic, normal inspection - Eye Eye exam: Present: normal appearance, EOMI Pupils: Present: normal accommodation - ENT ENT exam: Present: mucous membranes moist - Neck Neck exam: Present: normal inspection, full ROM. Absent: tenderness, lymphadenopathy - Respiratory Respiratory exam: Present: normal lung sounds bilaterally. Absent: respiratory distress - Cardiovascular Cardiovascular Exam: Present: regular rate, normal rhythm. Absent: systolic murmur, diastolic murmur, rubs, gallop - GI/Abdominal GI/Abdominal exam: Present: soft, normal bowel sounds. Absent: distended, tenderness - Rectal Rectal exam: Present: deferred - Extremities Exam Extremities exam: Present: normal inspection, full ROM, other (Bilateral tinea great toes pedal pulses +2 bilaterally. There is no erythema no swelling no deformity noted) - Back Exam Back exam: Present: normal inspection, full ROM. Absent: CVA tenderness (R), CVA tenderness (L) - Neurological Exam Neurological exam: Present: alert, oriented X3, CN II-XII intact, normal gait, reflexes normal - Expanded Neurological Exam Expanded Patient oriented to: Present: person, place, time Speech: Present: fluid speech Motor strength exam: RUE: 5, LUE: 5, RLE: 5, LLE: 5 Best Eye Response ([place]): (4) open spontaneously Best Motor Response ([place]): (6) obeys commands Best Verbal Response ([place]): (5) oriented [place] Total: 15 ED Course Vital Signs 02/03/22 23:18 Temperature 98.4 F Pulse Rate 101 H Respiratory 16 Rate Blood Pressure 106/67 O2 Sat by Pulse 91 Oximetry Critical care attestation.: If time is entered above; I have spent that time in minutes in the direct care of this critically ill patient, excluding procedure time. ED Disposition Clinical Impression: Onychomycosis Disposition: HOME / SELF CARE / HOMELESS Is pt being admited?: No Does the pt Need Aspirin: No Condition: Stable Instructions: Fungal Nail Infection Additional Instructions: Take medications as prescribed. Follow-up with your doctor in 2 to 3 days. Return to emergency department should symptoms worsen. Prescriptions: cephALEXin [Keflex] 500 mg PO Q8HR 7 Days #21 cap Terbinafine HCl [Lamisil At 1% CREAM] 1 applicatio TP BID 14 Days #1 tube traMADoL [Ultram] 50 mg PO Q6HR PRN #12 tablet PRN Reason: Pain Referrals: HARVEY CONNOLLY DPM [Staff Physician] - 3-5 Days Forms: Work/School Release Form(ED) Time of Disposition: 05:29
[2022-02-04 05:42] VITALS: BP 129/89
== END 2022-02-04 05:40 | disposition home or self-care (01) ==
LOC: ED 20:16
DX: B35.1 Tinea unguium (principal); M10.9 Gout, unspecified; F17.290 Nicotine dependence, other tobacco product, uncomplicated; Z88.0 Allergy status to penicillin
CPT/HCPCS: 99283

== ENCOUNTER 2022-04-17 19:55 | Emergency (ER) | payer SELFPAY ==
[2022-04-17 20:21] VITALS: BP 108/79
== END 2022-04-17 22:30 | disposition left against medical advice (07) ==
LOC: ED 19:55
DX: M25.572 Pain in left ankle and joints of left foot (principal); M25.571 Pain in right ankle and joints of right foot; Z53.21 Procedure and treatment not carried out due to patient leaving prior to being seen by health care provider